=== PATIENT | female | born 1985 ===

== ENCOUNTER 2016-08-08 09:03 | Emergency (ER) | payer OTHER ==
--- NOTE | 2016-08-08 10:19 | UC ---
Complaint Female HPI - HPI Summary HPI Summary: urinary burning and right flank pain, for 2 days, no fever - History Of Current Complaint Stated Complaint: UTI COMPLAINT Time Seen by Provider: 08/08/16 10:30 Hx Obtained From: Patient Hx Last Menstrual Period: 07/08/14 ?: No Onset/Duration: Sudden Onset, Lasting Days - 2, Still Present Timing: Constant Severity Initially: Moderate Severity Currently: Moderate Pain Intensity: 7 Pain Scale Used: 0-10 Numeric Radiates to: right flank around abdomen Character: Sharp, Colicy Aggravating Factor(s): Urination Alleviating Factor(s): Nothing Associated Signs And Symptoms: Positive: Back Pain, Nausea. Negative: Fever - Allergies/Home Medications Allergies/Adverse Reactions: Allergies Allergy/AdvReac Type Severity Reaction Status Date / Time No Known Allergies Allergy Verified 08/08/16 10:20 PMH/Surg Hx/FS Hx/Imm Hx Previously Healthy: Yes - Surgical History Surgical History: None - Family History Known Family History: Positive: None Family History: denies cardio vascular issues in family lineage - Social History Occupation: Unemployed Lives: With Family Alcohol Use: Rare Substance Use Type: None Smoking Status (MU): Current Every Day Smoker Type: Cigarettes Amount Used/How Often: 1 pack every 4 days Length of Time of Smoking/Using Tobacco: 12 years Have You Smoked in the Last Year: Yes Household Exposure Type: Cigarettes Cessation Counseling: Counseled 3+Min - 10 Min Review of Systems Constitutional: Chills Skin: Negative Eyes: Negative ENT: Negative Respiratory: Negative Cardiovascular: Negative Gastrointestinal: Abdominal Pain - right flank Genitourinary: Dysuria, Frequency, Urgency Motor: Negative Neurovascular: Negative Musculoskeletal: Negative Neurological: Negative Psychological: Negative All Other Systems Reviewed And Are Negative: Yes Physical Exam Triage Information Reviewed: Yes Appearance: Ill-Appearing, Pain Distress, Thin Vital Signs Reviewed: Yes Eye Exam: Normal Eyes: Positive: Conjunctiva Clear ENT Exam: Normal ENT: Positive: Normal ENT inspection, Hearing grossly normal, TMs normal. Negative: Nasal congestion, Nasal drainage, Tonsillar swelling, Tonsillar exudate, Trismus, Muffled/hoarse voice Neck exam: Normal Neck: Positive: Supple, Nontender, No Lymphadenopathy Respiratory Exam: Normal Respiratory: Positive: Chest non-tender, No respiratory distress, No accessory muscle use, Wheezing Cardiovascular Exam: Normal Cardiovascular: Positive: RRR, No Murmur, Pulses Normal, Brisk Capillary Refill , Tachycardia Abdomen Description: Positive: No Organomegaly, Soft, CVA Tenderness (R). Negative: McBurney's Point Tenderness, Peritoneal Signs Bowel Sounds: Positive: Present Musculoskeletal Exam: Normal Musculoskeletal: Positive: Strength Intact, ROM Intact, No Edema Neurological Exam: Normal Neurological: Positive: Alert, Muscle Tone Normal Psychological Exam: Normal Skin Exam: Normal Diagnostics - Laboratory Diagnostic Studies Completed/Ordered: urine--=nitates, leuks and blood Complaint Female Dx - Course Course Of Treatment: [place] now[place] [facility] [place]/o renal colic hydro., increase fluids, immediate follow up in ED - Differential Dx/Diagnosis Differential Diagnosis/HQI/PQRI: Renal Colic, Ureteral Stone, Urinary Tract Infection Provider Diagnoses: Right flank pain, pylonephritis/renal colic - Physician Notifications Discussed Patient Care With: Julian DIAZ Time Discussed With Above Provider: 10:45 Instructed by Provider To: Transfer Discharge - Discharge Plan Condition: Fair Disposition: AGAINST MEDICAL ADVICE
[2016-08-08 10:27] VITALS: BP 122/54
[2016-08-08] MEDS ORDERED: cefTRIAXone VIAL(*) 1,000 MG VIAL IM ONE (10:41)
[2016-08-08] MEDS ORDERED: Lidocaine 1% MPF* 2 ML VIAL ONE (11:00)
== END 2016-08-08 11:20 | disposition left against medical advice (07) ==
LOC: UCEAST 09:03
DX: M54.5 Low back pain (principal); N10 Acute pyelonephritis; N23 Unspecified renal colic; Z32.02 Encounter for pregnancy test, result negative; F17.210 Nicotine dependence, cigarettes, uncomplicated; Z71.6 Tobacco abuse counseling
CPT/HCPCS: 81002; 81025; 96372; 99212; G0463; J0696

== ENCOUNTER → 2016-08-08 12:44 | Emergency (ER) | payer OTHER ==
[2016-08-08 14:23] VITALS: BP 90/44
--- NOTE | 2016-08-08 14:27 | RAD ---
INDICATION: RIGHT flank pain. Assess for urolithiasis. COMPARISON: None. TECHNIQUE: Multidetector CT images were obtained from the lung bases to the ischial tuberosities. Evaluation of the viscera is limited without IV contrast. Multiplanar reformation. REPORT: Unremarkable visualized inferior thorax. Unremarkable unenhanced liver, gallbladder, pancreas, spleen. Negative for CT abnormality of the upper GI, small bowel, or top normal sized infra cecal appendix. Unremarkable colon. Physiologic small volume of free pelvic fluid. Negative for free air. Small periumbilical fat-containing hernia without inflammatory change. Normal adrenal glands. Unremarkable kidneys. Negative for nephrolithiasis or hydronephrosis. No focal renal lesions evident. Unremarkable nondilated ureters and moderately distended urinary bladder. Unremarkable retroverted uterus and LEFT adnexal region. The RIGHT ovary is mildly enlarged measuring up to 4.0 x 3.5 x 3.3 cm compared with 2.9 x 1.8 x 2.7 cm for the LEFT ovary. No CT conspicuous RIGHT ovarian lesions evident. No lymphadenopathy evident. Unremarkable dominant retroperitoneal vasculature. Physiologic distention of the IVC. 1.5 cm densely sclerotic bone island at the LEFT S1 sacral ala. No suspicious focal osseous lesions evident. IMPRESSION: 1. Negative for urolithiasis or hydronephrosis. 2. Normal appendix documented. 3. Mild enlargement of the RIGHT ovary without a CT conspicuous RIGHT ovarian lesion. Correlate with clinical assessment and consider pelvic ultrasound for further assessment if deemed appropriate. 4. Physiologic volume of free pelvic fluid.
[2016-08-08 14:36] LABS: Hematocrit 41 % (35-47); Hemoglobin 13.6 g/dl (12.0-16.0); Mean Corpuscular HGB Conc 34 g/dl (31-36); Mean Corpuscular Hemoglobin 30 pg (27-31); Mean Corpuscular Volume 87 fL (80-97); Mean Platelet Volume 7 um3 (7.4-10.4); Red Blood Count 4.63 10^6/ul (4.0-5.4); Red Cell Distribution Width 13 % (10.5-15); White Blood Count 13.1 10^3/ul (3.5-10.8)
[2016-08-08 14:52] LABS: Albumin 4.2 g/dL (3.2-5.2); C Reactive Protein 18.93 mg/L (< 5.00); Calcium 9.1 mg/dL (8.6-10.3); EGFR African American 132.9 (>60); EGFR Non-African American 103.3 (>60); Globulin 2.7 g/dL (2-4); Potassium 3.5 mmol/L (3.5-5.0); Total Bilirubin 0.4 mg/dL (0.2-1.0); Total Protein 6.9 g/dL (6.4-8.9)
== END | disposition left against medical advice (07) ==
LOC: ED 12:44
DX: R10.9 Unspecified abdominal pain (principal); Z53.21 Procedure and treatment not carried out due to patient leaving prior to being seen by health care provider
CPT/HCPCS: 36415; 74176; 80053; 81002; 81025; 83605; 83690; 85025; 86140; 96372; 99212; G0463; J0696

== ENCOUNTER 2016-09-14 08:48 | Emergency (ER) | payer OTHER ==
[2016-09-14 09:02] VITALS: BP 126/71
[2016-09-14] MEDS ORDERED: Ondansetron ODT TAB* 4 MG PO ONE (09:52)
--- NOTE | 2016-09-14 13:07 | UC ---
Rip Morris Adam, scribed for Yenifer Chand MD on 09/14/16 at 0930 . Complaint Female HPI - HPI Summary HPI Summary: Pt is a 31 year old female presenting with right flank pain that set on yesterday morning. Worked through the day yesterday. Today unable to go to work 2/2 pain. + n/v and dry heaving. No diarrhea. + freq / urg. Unk hematuria. She was dx'd with a UTI over a month ago and treated with abx. Her symptoms had resolved until yesterday morning. In addition to the right flank pain, she currently c/o fever, vomiting, constipation, and urgency to urinate. She ate dinner last night but vomited it up later in the night. She was able to keep down a glass of water this morning. She took ibuprofen 1000 mg yesterday, minimal relief. Pt smokes but has been unable to smoke as much as usual in the past 2 days because of her discomfort. Her last MP was 09/03/16. - History Of Current Complaint Chief Complaint: UCGU Stated Complaint: RT FLANK PAIN Time Seen by Provider: 09/14/16 09:24 Hx Obtained From: Patient Hx Last Menstrual Period: 09/01/16 Onset/Duration: Gradual Onset, Lasting Days, Still Present Timing: Constant Severity Initially: Moderate Severity Currently: Moderate Associated Signs And Symptoms: Positive: Fever, Back Pain - Right flank - Allergies/Home Medications Allergies/Adverse Reactions: Allergies Allergy/AdvReac Type Severity Reaction Status Date / Time No Known Allergies Allergy Verified 09/14/16 11:38 Home Medications: Home Medications Ibuprofen [Ibuprofen 200 MG] 600 mg PO .ONCE 09/14/16 [History Confirmed ] PMH/Surg Hx/FS Hx/Imm Hx Previously Healthy: Yes - although + recent hx as noted in hpi Endocrine History Of: Denies: Diabetes, Thyroid Disease Cardiovascular History Of: Denies: Cardiac Disorders, Hypertension Respiratory History Of: Denies: COPD, Asthma GI/ History Of: Denies: Ulcer - Surgical History Surgical History: None - Family History Known Family History: Positive: Other - GERD Negative: Cardiac Disease Family History: Denies cardiovascular issues in family lineage - Social History Occupation: Employed Full-time Lives: Alone Alcohol Use: Rare Substance Use Type: None Smoking Status (MU): Current Every Day Smoker Type: Cigarettes Amount Used/How Often: 1 pack every 4 days Length of Time of Smoking/Using Tobacco: 12 years Have You Smoked in the Last Year: Yes Household Exposure Type: Cigarettes Review of Systems Constitutional: Fever Eyes: Negative ENT: Negative Respiratory: Negative Cardiovascular: Negative Gastrointestinal: Vomiting, Other - Constipation. Last BM 2 days ago. Feels like she has to go but can't. Genitourinary: Urgency, Other - Flank pain Motor: Negative Neurovascular: Negative Musculoskeletal: Myalgia Neurological: Negative Psychological: Negative All Other Systems Reviewed And Are Negative: Yes Physical Exam Triage Information Reviewed: Yes Vital Signs: Initial Vital Signs Temp 101.3 F 09/14/16 08:57 Pulse 104 09/14/16 08:57 Resp 18 09/14/16 08:57 BP 126/71 09/14/16 08:57 Pulse Ox 97 09/14/16 08:57 - Additional Comments * Appearance: Well-Nourished, looks uncomfortable. * Eye Exam: Normal * ENT Exam: Normal * Neck exam: Normal, No adenopathy appreciated * Respiratory Exam: Normal, no dyspnea, no tachypnea, normal respiratory rate * Cardiovascular Exam: Normal * Cardiovascular: Heart rate regular, good general skin color, good capillary refill * Abdominal Exam: Normal * Abdomen Description: Nontender, No Organomegaly, Soft * Bowel Sounds: Present * Musculoskeletal Exam: Normal * Musculoskeletal: Strength Intact * Neurological Exam: Normal: nonfocal, grossly intact * Psychological Exam: Normal: conversing easily and appropriately Skin Exam: Normal: no visible or reported rash Diagnostics - Laboratory Diagnostic Studies Completed/Ordered: POC Ur Test - Negative. POC Urine Protein 1+. POC Urine Ketones - Trace. POC Urine Blood - Trace-lysed. POC Urine Nitrite - Positive. POC Urine Leukocyte Esterase - Trace Complaint Female Dx - Course Course Of Treatment: Ms. Servin clearly is uncomfortable. Unable to find a position of comfort. + R cvat is significant. Abd soft. Some tenderness R flank. Without direct suprapubic or lower R pelvis discomfort elicited to deep pressure. Reviewed urine dip and ucg. (ucg neg). S/sx c/w acute pyelonephritis. Recommend transfer to Emergency Department for further evaluation and management. Likely will need admission to the hospital. Discussed with Dr. Jackson at [facility] ED at 09:52. Transfer via EMS. Pt expresses understanding and agreement. Questions answered as posed. - Differential Dx/Diagnosis Provider Diagnoses: Acute pyelonephritis Discharge - Discharge Plan Condition: Guarded Disposition: ADMITTED TO [facility] Referrals: Non Staff,Doctor [Primary Care Provider] - The documentation as recorded by the Rip davis Adam accurately reflects the service I personally performed and the decisions made by me, Yenifer Chand MD.
== END 2016-09-14 10:16 | disposition short-term general hospital (02) ==
LOC: UCEAST 08:48
DX: N10 Acute pyelonephritis (principal); R11.2 Nausea with vomiting, unspecified; Z87.440 Personal history of urinary (tract) infections; F17.210 Nicotine dependence, cigarettes, uncomplicated; Z32.02 Encounter for pregnancy test, result negative
CPT/HCPCS: 81003; 84702; 99213; A9270-GY; G0463

== ENCOUNTER 2016-09-14 10:35 | Emergency (ER) | payer OTHER ==
[2016-09-14] MEDS ORDERED: Ondansetron INJ* 2 MG/ML VIAL IV ONE (10:51)
[2016-09-14] MEDS ORDERED: cefTRIAXone(*) 1 GM in NS 0.9% 50 ML* 50 ML IVPB ONE (10:51)
[2016-09-14] MEDS ORDERED: Ketorolac INJ* 30 MG/ML 1 ML VIAL IV ONE (10:53)
[2016-09-14] MEDS ORDERED: Acetaminophen TAB* 325 MG PO ONE (10:53)
[2016-09-14] MEDS: NS 0.9% 1000 ML* 3,000 ML IV ONE ×2 (11:09→12:27)
[2016-09-14 11:11] LABS: Hematocrit 40 % (35-47); Hemoglobin 13.3 g/dl (12.0-16.0); Mean Corpuscular HGB Conc 33 g/dl (31-36); Mean Corpuscular Hemoglobin 29 pg (27-31); Mean Corpuscular Volume 87 fL (80-97); Mean Platelet Volume 8 um3 (7.4-10.4); Red Blood Count 4.58 10^6/ul (4.0-5.4); Red Cell Distribution Width 14 % (10.5-15); White Blood Count 18.5 10^3/ul (3.5-10.8)
[2016-09-14 11:41] LABS: ALT 9 U/L (7-52); AST 14 U/L (13-39); Albumin 4.4 g/dL (3.2-5.2); Alkaline Phosphatase 71 U/L (34-104); Anion Gap 6 mmol/L (2-11); BUN/Creatinine Ratio 13.4 (8-20); Blood Urea Nitrogen 9 mg/dL (6-24); C Reactive Protein 121.87 mg/L (< 5.00); CO2 Carbon Dioxide 24 mmol/L (22-32); Calcium 9.1 mg/dL (8.6-10.3); Chloride 104 mmol/L (101-111); EGFR African American 132.9 (>60); EGFR Non-African American 103.3 (>60); Globulin 2.7 g/dL (2-4); Glucose 86 mg/dL (70-100); Potassium 3.9 mmol/L (3.5-5.0); Sodium 134 mmol/L (133-145); Total Protein 7.1 g/dL (6.4-8.9)
--- NOTE | 2016-09-14 13:05 | RAD ---
INDICATION: Right flank pain COMPARISON: CT August 08, 2016 TECHNIQUE: Longitudinal and transverse scans of the right kidney were obtained. FINDINGS: Right kidney: The kidneys is normal in size and echogenicity measuring 11.8 x 4.4 x 5.8 cm. There is mild prominence of the central collecting system. There is no hydronephrosis. There is no nephrolithiasis or evidence of adrenal mass. Other: None IMPRESSION: MILD PROMINENCE OF THE CENTRAL COLLECTING SYSTEM BUT NO HYDRONEPHROSIS. NO EVIDENCE OF NEPHROLITHIASIS.
[2016-09-14] MEDS ORDERED: Ciprofloxacin TAB* 500 MG PO ONE ×2 (13:37→13:38)
[2016-09-14] MEDS ORDERED: Phenazopyridine TAB* 100 MG PO ONE (13:38)
--- NOTE | 2016-09-14 13:47 | ED ---
Sophia Morris Alok, scribed for Pedro Jackson MD on 09/14/16 at 1053 . Abdominal Pain/Female - HPI Summary HPI Summary: 31 y/o female presents to the ED with right sided abd pain beginning yesterday as a burning sensation with dysuria and a fever . Currently pt states that her pain is at a 9 out of 10 in severity and also feels chills. Pt states NKDA. Pt was last here for similar pain one month ago. - History of Current Complaint Chief Complaint: EDFlankPain Stated Complaint: RT FLANK PAIN Time Seen by Provider: 09/14/16 10:40 Hx Obtained From: Patient Hx Last Menstrual Period: 09/01/16 Onset/Duration: Gradual Onset, Lasting Days, Still Present Timing: Constant Severity Initially: Moderate Severity Currently: Moderate Pain Intensity: 9 Pain Scale Used: 0-10 Numeric Location: Other - Right Flank Radiates: No Character: Burning Aggravating Factor(s): Nothing Alleviating Factor(s): Nothing Associated Signs and Symptoms: Positive: Fever Allergies/Adverse Reactions: Allergies Allergy/AdvReac Type Severity Reaction Status Date / Time No Known Allergies Allergy Verified 09/14/16 11:38 Home Medications: Home Medications Acetaminophen TAB* [Tylenol TAB*] 1,000 mg PO .ONCE 09/14/16 [History Confirmed 09/14/16] PMH/Surg Hx/FS Hx/Imm Hx Endocrine/Hematology History: Denies: Hx Diabetes, Hx Thyroid Disease Cardiovascular History: Denies: Hx Hypertension Respiratory History: Denies: Hx Asthma, Hx Chronic Obstructive Pulmonary Disease (COPD) GI History: Denies: Hx Ulcer Infectious Disease History: Denies: Hx Clostridium Difficile, Hx Hepatitis, Hx Human Immunodeficiency Virus (HIV), Hx of Known/Suspected MRSA, Hx Shingles, Hx Tuberculosis, Hx Known/ Suspected VRE, Hx Known/Suspected VRSA, History Other Infectious Disease - Family History Known Family History: Negative: Cardiac Disease Family History: denies cardio vascular issues in family lineage - Social History Alcohol Use: Rare Substance Use Type: Reports: None Smoking Status (MU): Current Every Day Smoker Type: Cigarettes Amount Used/How Often: 1 pack every 4 days Length of Time of Smoking/Using Tobacco: 12 years Have You Smoked in the Last Year: Yes Review of Systems Positive: Fever, Chills Positive: Abdominal Pain - Right Flank All Other Systems Reviewed And Are Negative: Yes Physical Exam Triage Information Reviewed: Yes Vital Signs On Initial Exam: Initial Vitals BP 124/62 09/14/16 10:45 Vital Signs Reviewed: Yes Appearance: Positive: Ill-Appearing - Moderate, Pain Distress - Moderate Skin: Positive: Warm, Skin Color Reflects Adequate Perfusion, Dry Head/Face: Positive: Normal Head/Face Inspection Eyes: Positive: EOMI, LICHA ENT: Positive: Normal ENT inspection Neck: Positive: Supple, Nontender Respiratory/Lung Sounds: Positive: Clear to Auscultation, Breath Sounds Present Cardiovascular: Positive: Tachycardia Abdomen Description: Positive: Soft, Other: - Right Flank Tenderness Bowel Sounds: Positive: Present Musculoskeletal: Positive: Normal, Strength/ROM Intact Neurological: Positive: Normal, Sensory/Motor Intact, Alert, Oriented to Person Place, Time Psychiatric: Positive: Normal, Affect/Mood Appropriate Diagnostics - Vital Signs Vital Signs Temp Pulse Resp BP Pulse Ox 09/14/16 12:09 101.4 F 09/14/16 12:08 93 98 09/14/16 11:45 96 98 09/14/16 11:44 102/60 09/14/16 11:26 104.6 F 99 20 124/62 99 09/14/16 11:00 114/62 09/14/16 10:46 104.6 F 104 20 124/62 98 09/14/16 10:45 124/62 - Laboratory Lab Results: Lab Results 09/14/16 09/14/16 09/14/16 Range/Units 09:55 09:55 09:55 WBC 18.5 H (3.5-10.8) 10^3/ul RBC 4.58 (4.0-5.4) 10^6/ul Hgb 13.3 (12.0-16.0) g/dl Hct 40 (35-47) % MCV 87 (80-97) fL MCH 29 (27-31) pg MCHC 33 (31-36) g/dl RDW 14 (10.5-15) % Plt Count 203 (150-450) 10^3/ul MPV 8 (7.4-10.4) um3 Neut % (Auto) 87.3 H (38-83) % Lymph % (Auto) 5.9 L (25-47) % Canadian % (Auto) 6.1 (1-9) % Eos % (Auto) 0.1 (0-6) % Baso % (Auto) 0.6 (0-2) % Absolute Neuts (auto) 16.2 H (1.5-7.7) 10^3/ul Absolute Lymphs (auto) 1.1 (1.0-4.8) 10^3/ul Absolute Monos (auto) 1.1 H (0-0.8) 10^3/ul Absolute Eos (auto) 0 (0-0.6) 10^3/ul Absolute Basos (auto) 0.1 (0-0.2) 10^3/ul Absolute Nucleated RBC 0 10^3/ul Nucleated RBC % 0 INR (Anticoag Therapy) 1.11 (0.89-1.11) APTT 34.7 (26.0-36.3) seconds Sodium 134 (133-145) mmol/L Potassium 3.9 (3.5-5.0) mmol/L Chloride 104 (101-111) mmol/L Carbon Dioxide 24 (22-32) mmol/L Anion Gap 6 (2-11) mmol/L BUN 9 (6-24) mg/dL Creatinine 0.67 (0.51-0.95) mg/dL Est GFR ( Amer) 132.9 (>60) Est GFR (Non-Af Amer) 103.3 (>60) BUN/Creatinine Ratio 13.4 (8-20) Glucose 86 (70-100) mg/dL Lactic Acid (0.5-2.0) mmol/L Calcium 9.1 (8.6-10.3) mg/dL Total Bilirubin 0.90 (0.2-1.0) mg/dL AST 14 (13-39) U/L ALT 9 (7-52) U/L Alkaline Phosphatase 71 (34-104) U/L C-Reactive Protein 121.87 H (< 5.00) mg/L Total Protein 7.1 (6.4-8.9) g/dL Albumin 4.4 (3.2-5.2) g/dL Globulin 2.7 (2-4) g/dL Albumin/Globulin Ratio 1.6 (1-3) Beta HCG, Quant < 0.60 mIU/mL 09/14/16 Range/Units 11:32 WBC (3.5-10.8) 10^3/ul RBC (4.0-5.4) 10^6/ul Hgb (12.0-16.0) g/dl Hct (35-47) % MCV (80-97) fL MCH (27-31) pg MCHC (31-36) g/dl RDW (10.5-15) % Plt Count (150-450) 10^3/ul MPV (7.4-10.4) um3 Neut % (Auto) (38-83) % Lymph % (Auto) (25-47) % Canadian % (Auto) (1-9) % Eos % (Auto) (0-6) % Baso % (Auto) (0-2) % Absolute Neuts (auto) (1.5-7.7) 10^3/ul Absolute Lymphs (auto) (1.0-4.8) 10^3/ul Absolute Monos (auto) (0-0.8) 10^3/ul Absolute Eos (auto) (0-0.6) 10^3/ul Absolute Basos (auto) (0-0.2) 10^3/ul Absolute Nucleated RBC 10^3/ul Nucleated RBC % INR (Anticoag Therapy) (0.89-1.11) APTT (26.0-36.3) seconds Sodium (133-145) mmol/L Potassium (3.5-5.0) mmol/L Chloride (101-111) mmol/L Carbon Dioxide (22-32) mmol/L Anion Gap (2-11) mmol/L BUN (6-24) mg/dL Creatinine (0.51-0.95) mg/dL Est GFR ( Amer) (>60) Est GFR (Non-Af Amer) (>60) BUN/Creatinine Ratio (8-20) Glucose (70-100) mg/dL Lactic Acid 0.5 (0.5-2.0) mmol/L Calcium (8.6-10.3) mg/dL Total Bilirubin (0.2-1.0) mg/dL AST (13-39) U/L ALT (7-52) U/L Alkaline Phosphatase (34-104) U/L C-Reactive Protein (< 5.00) mg/L Total Protein (6.4-8.9) g/dL Albumin (3.2-5.2) g/dL Globulin (2-4) g/dL Albumin/Globulin Ratio (1-3) Beta HCG, Quant mIU/mL Result Diagrams: 09/14/16 09:55 09/14/16 09:55 Lab Statement: Any lab studies that have been ordered have been reviewed, and results considered in the medical decision making process. - Additional Comments Diagnostic Additional Comments: US RENAL LIMITED RIGHT - IMPRESSION: MILD PROMINENCE OF THE CENTRAL COLLECTING SYSTEM BUT NO HYDRONEPHROSIS. NO EVIDENCE OF NEPHROLITHIASIS. Abdominal Pain Fem Course/Dx - Course Course Of Treatment: GIVEN IV ROCEPHIN IN ED. PATIENT IMPROVED IN ED. I RECOMMENDED ADMISSION. PATIENT DECLINED ADMISSION. DISCHARGE HOME STABLE ON CIPRO 500MG PO BID X 14 DAYS. I TOLD THE PATIENT TO RETURN TO THE ED IF WORSE, SHE AGREED. - Diagnoses Provider Diagnoses: Pyelonephritis Discharge - Discharge Plan Condition: Stable Disposition: HOME Prescriptions: Ciprofloxacin TAB* [Cipro 500 MG TAB*] 500 mg PO BID #17 tab Phenazopyridine 200 mg (NF) [Pyridium 200 MG tab] 200 mg PO TID PRN #10 tab PRN Reason: Pain Patient Education Materials: Acute Pyelonephritis (ED) Referrals: Non Staff,Doctor [Primary Care Provider] - [facility] [place] [facility] [Outside] Additional Instructions: FOLLOW UP WITH YOUR DOCTOR. RETURN TO THE EMERGENCY DEPARTMENT FOR ANY WORSENING OF YOUR CONDITION; FEVERS, YOU FEEL ILL, YOU FEEL LIKE PASSING OUT OR QUESTIONS OR CONCERNS. The documentation as recorded by the Sophia davis Alok accurately reflects the service I personally performed and the decisions made by me, Pedro Jackson MD.
[2016-09-14 14:07] VITALS: BP 91/58
== END 2016-09-14 14:06 | disposition home or self-care (01) ==
LOC: ED 10:35
DX: N12 Tubulo-interstitial nephritis, not specified as acute or chronic (principal); R10.9 Unspecified abdominal pain; R50.9 Fever, unspecified; F17.210 Nicotine dependence, cigarettes, uncomplicated
CPT/HCPCS: 36415; 76775; 80053; 83605; 84702; 85025; 85610; 85730; 86140; 87040; 99284; A9270-GY; J0696; J1885; J2405